=== PATIENT | male | born 1960 | race Caucasian/White ===

== ENCOUNTER 2017-05-25 08:39 | Day surgery (SDC) | payer OTHER ==
[2017-05-20 16:38] VITALS: BMI 30.5
[~2017-05-25 08:39] MED LIST: ceFAZolin SODIUM 1 GM VIAL IVPB ONE
[2017-05-25] MEDS ORDERED: ceFAZolin SODIUM 1 GM VIAL ONE (10:10)
[2017-05-25] MEDS ORDERED: MIDAZOLAM HCL 2 MG/2 ML SINGLE DOSE VIAL ONE (10:10)
[2017-05-25] MEDS ORDERED: ceFAZolin SODIUM 1 GM VIAL IVPB ONE (10:28)
[2017-05-25] MEDS ORDERED: KETOROLAC TROMETHAMINE 30 MG/1 ML VIAL ONE (10:29)
--- NOTE | 2017-05-25 10:56 | OP ---
Operative Note - Note: Operative Date: 05/25/17 Pre-Operative Diagnosis: B/L renal calculi Operation: Left ESWL Post-Operative Diagnosis: Same as Pre-op Surgeon: Vargas Rivera MD. Anesthesia: General
[2017-05-25] MEDS ORDERED: ONDANSETRON 4 MG/2 ML VIAL IVPUSH PRN (11:01)
[2017-05-25] MEDS ORDERED: oxyCODONE HCL 5 MG TABLET PO PRN (11:01)
[2017-05-25] MEDS ORDERED: ACETAMINOPHEN 325 MG TABLET (FP) PO PRN (11:01)
[2017-05-25] MEDS ORDERED: LACTATED RINGERS SOLUTION 1,000 ML IV SCH (11:15)
[2017-05-25 12:55] VITALS: TEMP 97.5
[2017-05-25 13:52] VITALS: BP 131/73; PULSE 59
--- NOTE | 2017-05-25 13:57 | OP ---
DATE OF OPERATION: 05/24/2017 PREOPERATIVE DIAGNOSIS: Bilateral renal calculus. POSTOPERATIVE DIAGNOSIS: Bilateral renal calculus. PROCEDURE: Left extracorporeal shock wave lithotripsy. HISTORY: Patient is a 56-year-old gentleman who has a known history of BPH, had microhematuria, and on preoperative evaluation, was found to have bilateral renal calculi consisting of an 11-mm stone in the left kidney and a 7-mm stone in the right kidney. After discussing preoperative options including observation, the patient wanted to undergo the above-stated procedure. Risks and benefits and treatment alternatives were discussed in detail. All questions were answered. BRIEF OPERATIVE NOTE: The patient was brought into the operating room, placed in supine position. The stone was not quite visible on fluoroscopy due to excessive amount of bowel gas. Using an ultrasonography, the 11-mm stone was found. The position was confirmed in 3 axes. At this time, 2500 shocks were delivered in electromagnetic fashion. Patient tolerated the procedure well and was brought to the recovery room in stable and satisfactory condition. Samia [id number]
== END 2017-05-25 13:50 | disposition home or self-care (01) ==
LOC: JASU-SURG 08:39
PROVIDERS: ATTEND Urology
PROC: 0TF4XZZ Fragmentation in Left Kidney Pelvis, External Approach (ICD-10-PCS; principal; 2017-05-25 10:15)
DX: N20.0 Calculus of kidney (principal)
CPT/HCPCS: 94760